=== PATIENT | male | born 1950 | race Hispanic/Latino ===

== ENCOUNTER 2022-11-20 08:31 | Outpatient (CLI) | payer BC ==
[2022-11-20 10:05] LABS: Hematocrit 42.1 % (38.8-50.0); Hemoglobin 14.2 g/dL (13.5-17.5); Mean Corpuscular HGB CONC 33.7 g/dL (32.0-36.0); Mean Corpuscular Hemoglobin 29.4 pg (27.0-33.0); Mean Corpuscular Volume 87.2 fl (81.2-95.1); Platelet Count 288 10x3/uL (150-450); RBC Distribution Width 12.1 % (11.5-14.5); Red Blood Cell (RBC) Count 4.83 10x6/uL (4.32-5.72); White Blood Cell (WBC) Count 8.9 10x3/uL (3.5-10.5)
[2022-11-20 10:49] LABS: Anion Gap 16 mmol/L (10-20); BUN (Urea Nitrogen) 19 mg/dL (8.4-25.7); Calc. Creatinine Clearance 0 mL/min (70-130); Calcium 9.2 mg/dL (7.8-10.44); Carbon Dioxide 22 mmol/L (23-31); Chloride 103 mmol/L (98-107); Estimated GFR 79; Glucose 163 mg/dL (83-110); Potassium 4.9 mmol/L (3.5-5.1); Sodium 136 mmol/L (136-145)
== END 2022-11-20 08:32 | disposition home or self-care (01) ==
LOC: CSHLAB 08:31
PROVIDERS: ATTEND Surgery
DX: Z01.818 Encounter for other preprocedural examination (principal); K43.9 Ventral hernia without obstruction or gangrene
CPT/HCPCS: 80048; 85027; 93005; 93010

== ENCOUNTER 2022-11-26 07:39 | Day surgery (SDC) | payer BC ==
[2022-11-20 09:29] VITALS: BMI 31.0
[2022-11-26] MEDS ORDERED: EPINEPHrine 1 MG/ML VIAL ONE (11:41)
[2022-11-26] MEDS ORDERED: Bupivacaine 0.25% HCL 30 ML VIAL ONE (11:42)
[2022-11-26] MEDS ORDERED: CEFAZOLIN 2 GM VIAL ONE (12:08)
[2022-11-26] MEDS ORDERED: Ondansetron PF 4 MG/2 ML Vial ONE ×2 (12:16→15:13)
[2022-11-26] MEDS ORDERED: Esmolol 100 MG/10 ML VIAL ONE (12:16)
[2022-11-26] MEDS ORDERED: Rocuronium Bromide 10 MG/ML (10ML VIAL) ONE (12:16)
[2022-11-26] MEDS ORDERED: PROPOFOL 20 ML ONE (12:16)
[2022-11-26] MEDS ORDERED: Dexamethasone 4 mg/ml Vial ONE (12:16)
[2022-11-26] MEDS ORDERED: fentaNYL 50 mcg/mL 1 mL Vial ONE (12:16)
[2022-11-26] MEDS ORDERED: SUGAMMADEX SODIUM 200 MG/2 ML VIAL ONE (13:32)
== END 2022-11-26 15:50 | disposition home or self-care (01) ==
LOC: CSHSDC 07:39
PROVIDERS: ATTEND Surgery
PROC: 0WQF0ZZ Repair Abdominal Wall, Open Approach (ICD-10-PCS; principal; 2022-11-26)
DX: K43.9 Ventral hernia without obstruction or gangrene (principal); E11.65 Type 2 diabetes mellitus with hyperglycemia; E78.00 Pure hypercholesterolemia, unspecified; E05.90 Thyrotoxicosis, unspecified without thyrotoxic crisis or storm; I10 Essential (primary) hypertension; Z87.891 Personal history of nicotine dependence; Z79.890 Hormone replacement therapy; Z79.4 Long term (current) use of insulin; Z79.899 Other long term (current) drug therapy
CPT/HCPCS: 36416; J0171; J1100; J2405; J2704; J3010; S0020